=== PATIENT | female | born 1995 | race Two or more races ===

== ENCOUNTER 2023-11-02 21:26 | Emergency (ER) | payer SELFPAY ==
[2023-11-02 21:30] VITALS: BP 142/88
--- NOTE | 2023-11-02 22:25 | ED.GENMED ---
History of Present Illness
General
Chief Complaint: Musculo-Skeletal Complaint
Time Seen by Provider: 11/02/23 21:38
Travel History
Have you had any contact with someone who has COVID-19?: No
Do you have any symptoms of coronavirus? Fever > 100 degrees, chills, cough, shortness of breath, sore throat, loss of taste or smell, muscle aches, or headache?: No
History of Present Illness
History of Present Illness:
28-year-old female presents to the emergency department for evaluation of a suspected left patellar dislocation. States that she was getting out of a hot tub, started on the left pivoted felt a pop with a visible deformity of the left knee. The
joint spontaneously reduced itself. 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
Past History
Past History
ED Past Medical History: None
ED Past Surgical History: None
Review of Systems
Review of Systems
Allergies reviewed?: Yes
All Other Systems: ROS reviewed and negative except as documented in HPI and ROS
Phy Exam
Physical Exam
Physical Exam:
GEN: Well appearing, NAD, WDWN
HEENT: Oral mucosa moist, no scleral icterus
Cardiac: Regular rate
Lung: No respiratory distress, no tachypnea
MSK: No gross deformity or injuries. Tenderness to the medial joint line of the left knee. Range of motion is normal and there is no laxity
Skin: Good color, no pallor or jaundice, no rashes
Neuro: AO x3, moves all extremities freely
Psych: Calm, cooperative
Course
Orders/Labs/Results
Orders:
Orders
11/02/23 21:57
Knee Immobilizer Left-Treatmen ONCE
CR Knee - Left 4 Or More View* Urgent
Comment:
Reason For Exam: patellar dislocation
Vital Signs
Initial and Last Documented VS:
Initial Vital Signs
Temp Pulse Resp BP Pulse Ox
97 F 82 18 142/88 100
11/02/23 21:30 11/02/23 21:30 11/02/23 21:30 11/02/23 21:30 11/02/23 21:30
Last Documented Vital Signs
Temp Pulse Resp BP Pulse Ox
97 F 82 18 142/88 100
11/02/23 21:30 11/02/23 21:30 11/02/23 21:30 11/02/23 21:30 11/02/23 21:30
MDM/Problems Addressed
MDM/Problems Addressed:
Patellar subluxation with no evidence for current instability. Will place knee immobilizer and have her follow-up as an outpatient with orthopedics
*Critical Care Note
Total Time (30-74mins, 75-104mins- exclusive of procedures): Not Applicable
ED Attending Note
-
Portions of this chart may have been created with voice recognition software.� Occasional wrong word or��sound alike� substitutions may have occurred due to the inherent limitations of voice recognition software.
Discharge Plan
Departure
Patient Disposition: Home (Routine Discharge)
Date of Disposition: 11/02/23
Time of Disposition: 22:26
Patient with high blood pressure during this ER visit?: No
Discharge Problem:
Subluxation of left patella
Instructions: Dislocated Kneecap (DC)
Prescriptions:
No Action
clarithromycin 500 MG tablet
500 mg PO DAILY
acetaminophen 325 MG tablet
650 mg PO Q4HPRN PRN (Reason: pain)
Referrals:
Arnold Patel MD [Active] -
Ana M Hoang DO [Family Provider] -
Interventions
Interventions:
*Risk Screen - Suicide Last Done: 11/02/23 21:30
*Neglect/Abuse Screening Last Done: 11/02/23 21:30
Discharge Date and Time
Print Language: LATVIAN
== END 2023-11-02 22:52 | disposition home or self-care (01) ==
LOC: EMR 21:26
PROVIDERS: EMERGENCY PHYSICIAN Emergency Medicine; FAMILY PHYSICIAN Family Medicine
DX: S83.002A Unspecified subluxation of left patella, initial encounter (principal); X50.1XXA Overexertion from prolonged static or awkward postures, initial encounter
CPT/HCPCS: 99283; 73564